=== PATIENT | female | born 1950 | race Caucasian/White ===

== ENCOUNTER → 2017-07-20 | Outpatient (CLI) | payer MEDICARE ==
[~2017-07-20] MED LIST: ACID REDUCER 1150 MG; ASPI81CH PO; BUPR100 PO; ERGO400 PO; FLUO10 PO; NAPR220 PO; Omeprazole20 M1; Omeprazole20 M1 PO; PROBIOTIC1 EAC1 PO; Percocet 5-3251 EACH PO; RANI150EL; ROXICODONE5 MG PO; TOCO400 PO; TRAZ100 PO
[2017-07-25 11:28] LABS: HPV Genotype 16 Not Detected (NOTDET); HPV Genotype 18 Not Detected (NOTDET)
[2017-07-31 08:57] LABS: HPV High Risk Other Not Detected (NOTDET)
== END | disposition home or self-care (01) ==
LOC: LAB 14:02
PROVIDERS: Obstetrics & Gynecology Gynecology
DX: D06.9 Carcinoma in situ of cervix, unspecified (principal); R87.810 Cervical high risk human papillomavirus (HPV) DNA test positive
CPT/HCPCS: 87624; 88142

== ENCOUNTER 2017-07-22 07:22 | Day surgery (SDC) | payer MEDICARE ==
[~2017-07-22 07:22] MED LIST changes: -ACID REDUCER 1150 MG; -Omeprazole20 M1; -RANI150EL; -ROXICODONE5 MG PO
[2017-07-22] MEDS ORDERED: ROXICODONE5 MG PO (14:56)
== END 2017-07-22 12:00 | disposition home or self-care (01) ==
LOC: ORSCMMR 07:22 → ORD 07:30 → ORSCMMR 07:30 → ORD 09:00 → ORSCMMR 12:00
PROVIDERS: Orthopaedic Surgery
PROC: 0PSH04Z Reposition Right Radius with Internal Fixation Device, Open Approach (ICD-10-PCS; principal; 2017-07-22 09:00)
DX: S52.501A Unspecified fracture of the lower end of right radius, initial encounter for closed fracture (principal); W18.30XA Fall on same level, unspecified, initial encounter; K21.9 Gastro-esophageal reflux disease without esophagitis; F41.9 Anxiety disorder, unspecified; Z79.899 Other long term (current) drug therapy
CPT/HCPCS: C1713; J0690; J1170; J1885; J2405; J2765; J3010; J7120

== ENCOUNTER → 2017-11-22 | Outpatient (CLI) | payer MEDICARE ==
[~2017-11-22] MED LIST changes: +ROXICODONE5 MG PO
== END | disposition home or self-care (01) ==
LOC: LAB SHORT 14:51 → LAB 14:51
PROVIDERS: Obstetrics & Gynecology Gynecology
DX: D06.9 Carcinoma in situ of cervix, unspecified (principal)
CPT/HCPCS: 87624; 88142

== ENCOUNTER 2018-02-19 10:08 | Day surgery (SDC) | payer MEDICARE ==
[~2018-02-19] VITALS: Ht 157.5 cm; Wt 55.3 kg
[2018-02-19] MEDS ORDERED: Omeprazole20 M1 (10:39)
[2018-02-19] MEDS ORDERED: RANI150EL (10:39)
[2018-02-19] MEDS ORDERED: ACID REDUCER 1150 MG (10:41)
== END 2018-02-19 11:40 | disposition home or self-care (01) ==
LOC: ORSCSDS 10:08
PROVIDERS: Internal Medicine Gastroenterology
PROC: 0DB88ZX Excision of Small Intestine, Via Natural or Artificial Opening Endoscopic, Diagnostic (ICD-10-PCS; principal; 2018-02-19 11:30)
PROC: 0D758ZZ Dilation of Esophagus, Via Natural or Artificial Opening Endoscopic (ICD-10-PCS; principal; 2018-02-19 11:30)
PROC: 0DB68ZX Excision of Stomach, Via Natural or Artificial Opening Endoscopic, Diagnostic (ICD-10-PCS; principal; 2018-02-19 11:30)
DX: R10.13 Epigastric pain (principal); R13.10 Dysphagia, unspecified; K22.2 Esophageal obstruction; K29.70 Gastritis, unspecified, without bleeding; R63.4 Abnormal weight loss; K44.9 Diaphragmatic hernia without obstruction or gangrene; K21.9 Gastro-esophageal reflux disease without esophagitis; F32.9 Major depressive disorder, single episode, unspecified; Z79.82 Long term (current) use of aspirin; Z79.899 Other long term (current) drug therapy
CPT/HCPCS: 88305; 88342; J7120

== ENCOUNTER → 2019-05-28 | Outpatient (CLI) | payer MEDICARE ==
[~2019-05-28] MED LIST changes: +ACID REDUCER 1150 MG; +Omeprazole20 M1; +RANI150EL
[2019-05-30 15:07] LABS: HPV 16 Negative (Negative); HPV 18 Negative (Negative); HPV OTHER HR TYPES Positive (Negative)
== END | disposition home or self-care (01) ==
LOC: LAB SHORT 14:56 → LAB 14:56
PROVIDERS: Obstetrics & Gynecology Gynecology
DX: Z91.89 Other specified personal risk factors, not elsewhere classified (principal)
CPT/HCPCS: 87624; 87625; G0123

== ENCOUNTER → 2019-09-10 | Outpatient (CLI) | payer MEDICARE | LOC: LAB SHORT 12:07 → LAB EV 12:07 | DX: R19.01 Right upper quadrant abdominal swelling, mass and lump (principal); R59.0 Localized enlarged lymph nodes; R05 Cough | CPT/HCPCS: 82565 ==

== ENCOUNTER → 2022-10-10 | Outpatient (CLI) | payer MEDICARE ==
[~2022-10-10] MED LIST changes: +Aspirin EC81 MG PO; +MULTIPLE VITAM1 EACH PO; +OMEP20ER PO; +Prozac20 MG PO; +TOCO1000 PO; +TRAM50 PO; +TRAZ50; +TRAZAMINE PO; +Vitamin D2000 UNIT PO; +[UNRECOGNIZED DRUG - OTHER] PO
[2022-10-10 12:04] LABS: Source, Urine Clean Catch
[2022-10-10 12:07] LABS: Appearance, Urine Cloudy (Clear); Bilirubin, Urine Neg (Neg); Blood, Urine 3+ (Neg); Color, Urine Yellow (P-Yellow); Glucose Qualitative, Urine Neg (Neg); Ketones, Urine 1+ (Neg); Leukocyte Esterase, Urine 3+ (Neg); Nitrite, Urine Neg (Neg); Protein, Urine 3+ (Neg); Specific Gravity, Urine 1.015 (1.003-1.022); Urobilinogen, Urine NORM (Normal)
[2022-10-10 12:18] LABS: Bacteria Many /hpf; Squamous Epithelial Cells Few /hpf (Few)
== END ==
LOC: LAB SHORT 11:16 → LAB 11:16
PROVIDERS: Physician Assistant
DX: R30.0 Dysuria (principal)
CPT/HCPCS: 81001; 87077; 87086; 87186

== ENCOUNTER → 2022-10-27 | Outpatient (CLI) | payer MEDICARE ==
[2022-10-27 11:52] LABS: Albumin, Blood 3.4 g/dL (3.4-5.0); Albumin/Globulin Ratio 0.9 (0.8-1.8); Bun/Creatinine Ratio 21.4 (12.0-20.0); Calcium, Blood 9.3 mg/dL (8.5-10.1); Creatinine, Blood 0.66 mg/dL (0.40-1.00); Globulin, Blood 3.9 g/dL (2.2-4.0); Potassium, Blood 4.1 mmol/L (3.5-5.5); Total Protein, Blood 7.3 g/dL (6.4-8.2)
== END ==
LOC: LAB 10:49 → LAB SHORT 10:49
PROVIDERS: Physician Assistant
DX: K76.0 Fatty (change of) liver, not elsewhere classified (principal)
CPT/HCPCS: 80053

== ENCOUNTER → 2022-12-07 | Outpatient (CLI) | payer MEDICARE | END | disposition home or self-care (01) | LOC: LAB 09:10 → LAB SHORT 09:10 | DX: N39.0 Urinary tract infection, site not specified (principal) | CPT/HCPCS: 87077; 87086; 87186 ==